=== PATIENT | male | born 1995 | race Caucasian/White ===

== ENCOUNTER 2018-06-25 09:12 | Emergency (ER) | payer BC, OTHER ==
[2018-06-25] MEDS ORDERED: Diphtheria,Pertussis(Acell),Tetanus Vaccine 0.5 ML SDV IM ONE (09:49)
--- NOTE | 2018-06-25 09:55 | EDM.PDOC ---
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 Td unknown cut L middle finger on plastic R handed - Related Data Allergies Allergy/AdvReac Type Severity Reaction Status Date / Time No Known Allergies Allergy Verified 06/25/18 09:36 Home Meds: Home Meds cephALEXin [Cephalexin] 500 mg PO TID #9 tablet 06/25/18 [Rx] Social & Family History - Tobacco Use Smoking Status *Q: Current Every Day Smoker Years of Tobacco use: 5 Packs/Tins Daily: 0.2 - Alcohol Use Days Per Week of Alcohol Use: 7 Number of Drinks Per Day: 2 Total Drinks Per Week: 14 - Recreational Drug Use Recreational Drug Use: No ED ROS GENERAL - Review of Systems Review Of Systems: See Below Constitutional: Reports: No Symptoms HEENT: Reports: No Symptoms Respiratory: Reports: No Symptoms Cardiovascular: Reports: No Symptoms Endocrine: Reports: No Symptoms GI/Abdominal: Reports: No Symptoms : Reports: No Symptoms Musculoskeletal: Reports: No Symptoms Skin: Reports: Wound Neurological: Reports: No Symptoms Psychiatric: Reports: No Symptoms Hematologic/Lymphatic: Reports: No Symptoms Immunologic: Reports: No Symptoms ED EXAM, SKIN/RASH Exam: See Below Exam Limited By: No Limitations General Appearance: Alert, WD/WN, No Apparent Distress Neurological: Alert, Oriented, CN II-XII Intact, Normal Cognition, Normal Gait, No Motor/Sensory Deficits Psychiatric: Normal Affect, Normal Mood Skin: Other (L middle finger dorsal over DIP is a 1 cm horizontal lac, 3 mm deep , skin separates 2 mm with flex, edges will apposed at rest, no f.b., just full thickness and into subc, no injury to tendon or joint capsule, m/s intact) Course - Vital Signs Last Recorded V/S: Last Vital Signs Temp 37.0 C 06/25/18 09:20 Pulse 97 06/25/18 09:20 Resp 18 06/25/18 09:20 BP 156/97 H 06/25/18 09:20 Pulse Ox 97 06/25/18 09:20 - Orders/Labs/Meds Orders: Active Orders 24 hr Category Date Time Status Vaccines to be Administered [RC] PER UNIT ROUTINE Care 06/25/18 09:49 Ordered Diphth,Pertuss(Acell),Tet Vac [Adacel] Med 06/25/18 09:49 Once 0.5 ml IM .ONCE ONE Departure - Departure Time of Disposition: 09:53 Disposition: Home, Self-Care 01 Condition: Good Clinical Impression: Finger laceration Qualifiers: Encounter type: initial encounter Finger: middle finger Damage to nail status: without damage Foreign body presence: without foreign body Laterality: left Qualified Code(s): S61.213A - Laceration without foreign body of left middle finger without damage to nail, initial encounter - Discharge Information *PRESCRIPTION DRUG MONITORING PROGRAM REVIEWED*: Not Applicable *COPY OF PRESCRIPTION DRUG MONITORING REPORT IN PATIENT DAIJA: Not Applicable Prescriptions: cephALEXin [Cephalexin] 500 mg PO TID #9 tablet Instructions: Laceration Care, Adult Referrals: Alf Powers MD [Primary Care Provider] - Additional Instructions: Keep clean and dry. Do not bend finger for 1 week, then may use normally. Use a splint or several bandaids to support joint and keep it straight. To decrease risk of infection, take cephalexin 500 mg 1 tab 3 times a day for 3 days. Yet, see a physician the same day for an increase in redness, swelling, pain, warmth, fever or drainage. Call your Physician or Return to Emergency Department if: * Your condition worsens in any way. * You develop fever greater than 100.4. * You have vomitting that does not stop with medications. * You have pain that is not controlled with medications. - My Orders Last 24 Hours: My Active Orders 06/25/18 09:49 Vaccines to be Administered [RC] PER UNIT ROUTINE Diphth,Pertuss(Acell),Tet Vac [Adacel] 0.5 ml IM .ONCE ONE - Assessment/Plan Last 24 Hours: My Active Orders 06/25/18 09:49 Vaccines to be Administered [RC] PER UNIT ROUTINE Diphth,Pertuss(Acell),Tet Vac [Adacel] 0.5 ml IM .ONCE ONE
[2018-06-25 10:20] VITALS: BP 158/82
== END 2018-06-25 10:10 | disposition home or self-care (01) ==
LOC: FB.ED 09:12
DX: S61.213A Laceration without foreign body of left middle finger without damage to nail, initial encounter (principal); Z23 Encounter for immunization; F17.210 Nicotine dependence, cigarettes, uncomplicated; W45.8XXA Other foreign body or object entering through skin, initial encounter
CPT/HCPCS: 90471; 90715; 99282